=== PATIENT | male | born 1985 | race Hispanic/Latino ===

== ENCOUNTER → 2018-06-07 | Day surgery (SDC) | payer BC ==
[~2018-06-07] MED LIST: BACITRACIN ZINC 15 GM OINT ONE; BUPIVACAINE HCL 0.5% INJ 30 ML VIAL INJ ONE; CEFAZOLIN SOD 1 GM/NS 50ML 50 ML IV ONE; DEXAMETHASONE SOD PHOS INJ 4 MG/ML VIAL ONE; FENTANYL CITRATE/PF 100MCG/2 ML INJ ONE; IBUPROFEN400 MG PO; KETOROLAC TROMETHAMINE 30 MG/ML VIAL ONE; LIDOCAINE HCL 2% LOCAL INJ 5 ML SDV VIAL INJ ONE; MIDAZOLAM HCL 2 MG/2 ML VIAL ONE; ONDANSETRON HCL INJ 2MG/ML 2ML 2 MG/ML VIAL ONE; PROPOFOL IV EMULSION 10 MG/ML 20 ML VIAL ONE; SEVOFLURANE INHAL SOLN 250 ML PEN BTL ONE
[2018-06-07 09:34] VITALS: BP 117/68
--- NOTE | 2018-06-13 11:50 | Operative Report ---
DATE OF PROCEDURE: 06/07/2018 SURGEON: Orestes Sheffield DPM PREOPERATIVE DIAGNOSIS: Left 5th metatarsal fracture. POSTOPERATIVE DIAGNOSIS: Left 5th metatarsal fracture. PLANNED PROCEDURE: Open reduction, internal fixation of left 5th metatarsal. ANESTHESIA: General with a postoperative block consisting of 10 mL of 0.5% Marcaine plain mixed with 1 mL of dexamethasone phosphate. HEMOSTASIS: Pneumatic ankle tourniquet set at 250 mmHg for a total time of approximately 30 minutes. ESTIMATED BLOOD LOSS: Less than 10 mL. PATHOLOGY: None. PROCEDURE NOTE: The patient was seen in the preop waiting room where the correct procedure and site was identified. The patient was brought to the operating room, placed on the operating table in the supine position. General anesthesia was initiated. At this time, a well-padded pneumatic tourniquet was placed about the patient's left ankle. Left foot, ankle, and leg were then scrubbed, prepped, and draped in the usual aseptic manner. The left foot, ankle and leg were then exsanguinated with an Esmarch bandage and the pneumatic ankle tourniquet was inflated at 250 mmHg for a total time of approximately 30 minutes. Attention was directed to the lateral aspect of patient's left foot where a 6 cm linear incision made directly over the shaft of the patient's 5th metatarsal. Incision was carried through the subcutaneous tissue, it from deeper underling structures. All vital neurovascular structures were identified, retracted medially and laterally and all bleeders were cauterized or ligated as deemed necessary. Dissection was carried down to the level of bone where the fracture site was easily identified. It was noted to be in four separate fragments. There was a long spiral oblique fracture extending from the neck to the base. The fracture site was opened. Hematoma was debrided and cleansed with sterile saline as well as a dental pick. A small fragment near the neck of the metatarsal was resected and passed off to the back table. The remainder fragments were reduced and clamped utilizing a bone reduction forceps. Next, utilizing techniques of AO fixation, one 2.4 mm x 12 mm cortical bone screw was placed across the largest fragment of the 5th metatarsal. Next, utilizing techniques of a fixation one [place] foot set four hole 2.4 mm plate was placed across the both fracture sites and fixated utilizing three screws measuring between 12 and 14 mm. Fixation site is stable. The reduction is adequate and this was confirmed via intraoperative fluoroscopy. The wound was then flushed with copious amounts of sterile saline. Capsule and deep tissue were reapproximated with 3-0 Vicryl, subcutaneous tissue with 4-0 Vicryl and the skin was closed utilizing simple interrupted horizontal mattress sutures with 4-0 Prolene. The incision site was then dressed with Adaptic, 4x4s, Kerlix, Webril, posterior splint, 4 inch Timoteo wrap, and a 6 inch Timoteo wrap. The patient tolerated the procedure and anesthesia well. The patient was transferred to the postop recovery room with vital signs stable and vascular status intact. The patient was monitored there for a short period time before being sent home with the following written and oral instructions. 1. Keep the dressing clean, dry, and intact. 2. The patient is to remain nonweightbearing to the left lower extremity to avoid any ambulation until being seen in the office. 3. The patient was given office number and instructed to contact us if any problems should arise. RHONDA Phoenix/ARIEL /[id number]
== END | disposition home or self-care (01) ==
LOC: OR 05:43
PROVIDERS: ATTEND Podiatrist Foot & Ankle Surgery
DX: S92.352A Displaced fracture of fifth metatarsal bone, left foot, initial encounter for closed fracture (principal)
CPT/HCPCS: 28485; J0690; J1100; J1885; J2001; J2250; J2405; J2704